=== PATIENT | female | born 1955 | race African-American/Black ===

== ENCOUNTER 2020-04-08 14:43 | Inpatient (IN) | payer OTHER ==
[~2020-04-08] VITALS: Ht 172.7 cm; Wt 89.4 kg
[2020-04-08 14:45] VITALS: BP 99/61
[2020-04-08 15:22] LABS: BASOPHILS 0.4 % (0.0-2.0); EOSINOPHILS 0.1 % (0.0-3.0); HEMATOCRIT 35.7 % (37.0-47.0); HEMOGLOBIN 11.7 gm/dL (12.0-15.0); LYMPHOCYTES 5.1 % (24.0-44.0); MCHC 32.9 g/dL (28.0-37.0); MCV 85.2 fL (80.0-100.0); MONOCYTES 4.9 % (1.0-8.0); PLATELET COUNT 259 thou/uL (150-400); POLYS 89.5 % (36.0-66.0); RBC 4.19 mil/uL (4.20-5.00); RDW 15.1 % (10.5-14.5); WBC 12.3 thou/uL (4.0-11.0)
[2020-04-08 15:27] LABS: CALCIUM 9.1 mg/dL (8.5-10.1); CREATININE 0.7 mg/dL (0.6-1.0); POTASSIUM 3.6 mmol/L (3.5-5.1)
--- NOTE | 2020-04-08 15:36 | NUR ---
CALLED DR DENIS FOR UPDATED MED LIST
[2020-04-08 15:42] LABS: DIRECT BILIRUBIN 0.1 mg/dL (<0.1-0.2); TOTAL BILIRUBIN 0.4 mg/dL (0.2-1.0); TOTAL PROTEIN 7.2 g/dL (6.4-8.2)
[2020-04-08 15:44] LABS: APTT 25.4 Seconds (24.5-32.8); INR 1.1; PROTIME 10.9 Seconds (9.3-11.4)
[2020-04-08] MEDS ORDERED: MAGNESIUM OXID400 M1 PO (19:54)
[2020-04-08] MEDS ORDERED: KLOR-CON M2020 MEQ PO (19:54)
[2020-04-08 20:05] LABS: URINE BILIRUBIN NEGATIVE (Negative); URINE BLOOD 1+ (Negative); URINE CLARITY CLEAR; URINE COLOR YELLOW; URINE GLUCOSE-RANDOM* NEGATIVE (Negative); URINE KETONES TRACE (Negative); URINE LEUKOCYTES-REFLEX TRACE (Negative); URINE NITRITE-REFLEX NEGATIVE (Negative); URINE PROTEIN (DIPSTICK) NEGATIVE (Negative); URINE UROBILINOGEN 0.2 E.U./dl (0.2-1.0)
[2020-04-08 20:11] LABS: CASTS None Seen /LPF (None Seen); MUCUS None Seen strn/LPF (None Seen); SQUAMOUS None Seen /LPF (0-3); URINE RBC 0-2 Rare /HPF (0-2); URINE WBC-REFLEX 0-5 Rare /HPF (0-5)
[2020-04-08 20:12] LABS: BACTERIA-REFLEX >30 Many /HPF (None Seen); CRYSTALS None Seen /LPF (None Seen)
[2020-04-09] VITALS (7 sets, daily range): BP systolic 115–150; BP diastolic 42–87
[2020-04-09 05:32] LABS: HEMATOCRIT 38.7 % (37.0-47.0); HEMOGLOBIN 12.4 gm/dL (12.0-15.0); MCV 87.4 fL (80.0-100.0); RBC 4.43 mil/uL (4.20-5.00); RDW 15.7 % (10.5-14.5); WBC 12.9 thou/uL (4.0-11.0)
[2020-04-09 05:59] LABS: CALCIUM 8.7 mg/dL (8.5-10.1); CREATININE 0.7 mg/dL (0.6-1.0); POTASSIUM 3.6 mmol/L (3.5-5.1)
--- NOTE | 2020-04-09 06:02 | NUR ---
PT ARRIVED TO ROOM 353 VIA BED WITH LAND SURVEYING MANAGER. ADMISSION ASSESSMENTS COMPLETED. PT ALERT, ORIENTED TO NAME AND PLACE "[facility]." DOES NOT KNOW DATE OR HAVE FULL UNDERSTANDING ON WHY SHE WAS BROUGHT TO THE HOSPITAL. "I DON'T WANT TO HAVE COVID AGAIN." NOTED TEMP GREATER THAN 103 DEGREES PRIOR TO ARRIVAL PER LAND SURVEYING MANAGER. UPON ARRIVAL TO 353, ORAL TEMP 102.2 DID LOWER THE AMBIENT TEMP TO THE ROOM TO 65 DEGREES AND KEEP BLANKETS OFF PT. THIS AM ORAL TEMP 100.9. CONTINUE TO MONITOR.
--- NOTE | 2020-04-09 11:33 | HC ---
[facility] [place] [address] CONSULTATION Name: OUSMANE FORD Room #: 353- ADM IN M.R.#: [id number] Admission: 04/08/20 Attend Phys: Taras Veras MD Discharge: Date of : 57 Report #: [id number] THIS REPORT FOR: cc: Akira Cantrell James D. DO Barry, Joseph W. MD ~ CC: Akira Veras DATE OF SERVICE: 04/09/2020 INFECTIOUS DISEASE CONSULTATION ATTENDING PHYSICIAN: Dr. Veras. REASON FOR EVALUATION: Febrile illness with cephalopathy in the setting of multiple sclerosis. HISTORY OF PRESENT ILLNESS: Chart reviewed, the patient examined. This is a 65-year-old with history of MS, spondylosis with myopathy, who presented from a facility with complaints of fevers, which have been high grade and altered mental status. There was some discussion, was confirmed to have COVID positive testing back in 12/2019. Repeat testing, thus far has been unremarkable. Additional evaluation is difficult to get a history from her. She is generally uncomfortable and quite lethargic. Screening evaluation noted initial lactic acid of 2.3. Chest x-ray showed no acute process. Urinalysis was unremarkable. Blood cultures thus far negative. She was empirically given combination therapy with ceftriaxone, Zosyn and vancomycin. She was continued on cefepime. Apparently had reported a headache. There is a lumbar puncture that was attempted, which was unsuccessful. At this point, she denies significant headache. She is not aware of anybody that has been ill around her. No particular exposure history. ALLERGIES: None known. MEDICATIONS: Include vancomycin, cefepime, methylprednisolone, ___, antiemetics. She is on enoxaparin as well. PAST MEDICAL HISTORY: Includes multiple sclerosis, history of dysphagia, hypertension, spondylosis with myopathy. 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 SOCIAL HISTORY: Nonsmoker, no ethanol, no illicit drug use. I believe she is disabled. FAMILY HISTORY: Noncontributory. [facility] [address] [place] [address] CONSULTATION Name: OUSMANE FORD Room #: 353-[facility] IN M.R.#: [id number] Admission: 04/08/20 Attend Phys: Taras Veras MD Discharge: Date of : 57 Report #: [id number] REVIEW OF SYSTEMS: Limited given the patient's inability. PHYSICAL EXAMINATION: GENERAL: She appears chronically ill. She is lethargic, in moderate distress. VITAL SIGNS: T-max 102.2, more recently 100.4, pulse 103, respirations 14, blood pressure 115/67. SKIN: Warm, dry, no rashes. HEENT: Normocephalic. Extraocular muscles intact. NECK: Appears to be supple. HEART: Regular, has a soft systolic murmur. LUNGS: Diminished breath sounds. Few scattered crackles at the bases. ABDOMEN: Distended, soft, there are no peritoneal signs. GENITOURINARY AND RECTAL: Deferred. LABORATORY DATA: Initial CBC: White count 12.3, H and H 11.7 and 35.7, platelets of 259. Lactic acid of 2.3, repeat was 1.7. CT of the head showed moderately prominent periventricular low attenuation along the frontal lobes that is to be microvascular ischemia, no findings of hemorrhage. Electrolytes: Sodium 139, potassium 3.6, chloride 100, bicarbonate 28, anion gap of 11, BUN and creatinine 8 and 0.7, glucose of 130. Albumin of 3.0, total protein 7.2. LFTs unremarkable. PT of 10.9, INR 1.1. Chest x-ray as noted above was unremarkable. Urinalysis as well was unremarkable. COVID testing was negative. Blood cultures are sterile thus far. ASSESSMENT: Febrile illness of uncertain etiology with associated encephalopathy, it is difficult to ascertain her baseline, does have a NETWORKS SOFTWARE CONSULTANT shunt. We will continue broad-spectrum antimicrobial therapy. At this point, would favor repeated attempt at doing a lumbar puncture perhaps under the guidance of Interventional Radiology to exclude the possibility. I do not see any focus of pyogenic infection. We will image her abdomen and pelvis to exclude an occult process there. Again, she remains ill, but not overtly toxic at this point. <ELECTRONICALLY SIGNED> By: Slyvester Burton MD 04/09/20 1133 [id number] Sylvester Burton MD /nt
[2020-04-09] MEDS ORDERED: ACETAMINOPHEN325 MG PO (14:39)
[2020-04-09] MEDS ORDERED: NORVASC 2.5 MG2.5 M1 PO (14:40)
[2020-04-09] MEDS ORDERED: VITAMIN C500 M2 PO (14:41)
[2020-04-09] MEDS ORDERED: VITAMIN D3250 MCG PO (14:42)
[2020-04-09] MEDS ORDERED: BACLOFEN 10MG T10 MG PO (14:42)
[2020-04-09] MEDS ORDERED: COLACE100 MG PO (14:43)
[2020-04-09] MEDS ORDERED: FAMOTIDINE 20 M20 MG PO (14:44)
[2020-04-09] MEDS ORDERED: DULCOLAX10 MG RECTAL (14:44)
[2020-04-09] MEDS ORDERED: NEURONTIN 300M300 M2 PO (14:45)
[2020-04-09] MEDS ORDERED: GLYCOLAX119 GM PO (14:46)
[2020-04-09] MEDS ORDERED: HYDROCHLOROTHIA25 M2 PO (14:47)
[2020-04-09] MEDS ORDERED: JUVEN PACKET1 EAC1 PO (14:48)
[2020-04-09] MEDS ORDERED: MIRTAZAPINE7.5 MG PO (14:49)
[2020-04-09] MEDS ORDERED: SUPER THERAVIT1 EACH PO (14:50)
[2020-04-09] MEDS ORDERED: CASTIVA COOLIN113 GM TOP (14:52)
[2020-04-09] MEDS ORDERED: OXYBUTYNIN 5 MG5 M2 PO (14:53)
[2020-04-09] MEDS ORDERED: PROSOURCE NO CA30 ML PO (14:54)
[2020-04-09] MEDS ORDERED: FLOMAX0.4 MG PO (14:55)
[2020-04-09] MEDS ORDERED: TECFIDERA240 MG PO (14:55)
[2020-04-09] MEDS ORDERED: ULTRAM 50MG TAB50 MG PO (14:56)
[2020-04-09] MEDS ORDERED: TUMS ULTRA400 MG PO (14:57)
[2020-04-09] MEDS ORDERED: ZINC SULFATE220 MG PO (14:58)
[2020-04-10 05:27] VITALS: BP 152/92
[2020-04-10 05:51] LABS: HEMATOCRIT 35.2 % (37.0-47.0); HEMOGLOBIN 11.4 gm/dL (12.0-15.0); MCH 28.3 pg (26.0-34.0); MCHC 32.5 g/dL (28.0-37.0); MCV 87.1 fL (80.0-100.0); RBC 4.04 mil/uL (4.20-5.00); RDW 15.1 % (10.5-14.5); WBC 10.5 thou/uL (4.0-11.0)
[2020-04-10 06:02] LABS: CALCIUM 8.8 mg/dL (8.5-10.1); CREATININE 0.6 mg/dL (0.6-1.0)
[2020-04-10 08:27] VITALS: BP 131/69
[2020-04-10 10:53] VITALS: BP 118/63
[2020-04-10 15:41] VITALS: BP 129/79
--- NOTE | 2020-04-10 18:43 | NUR ---
RN HAS ASSUMED PT'S CARE AT 0700AM, PT IS A&OX3 , PT 'S VS ARE STABLE, PT IS CONTINUING IV FLUID AND IV ABX , PT 'S WOUND CARE HAS DONE PER WOUND DR ORDER, PT DENIES PAIN AND SOB , PT IS CONTINUING ISOLATION TO R/O COVID.
[2020-04-10 20:43] VITALS: BP 143/80
--- NOTE | 2020-04-11 04:06 | NUR ---
ASSUMED CARE FROM DAY SHIFT PT ALERT ORIENTED X4 DENIES PAIN ,PO MEDICATION TAKEN WITHOUT DIFF, HS SNACK EATEN . PT REPOSITIONED TO SIDE. METAL BUILDING ASSEMBLER SHOWS NSR.RESTING WELL THROUGHOUT HOURLY ROUNDS WILL CONITINUE WITH CURENT PLAN OF CARE.
[2020-04-11 04:33] VITALS: BP 129/75
[2020-04-11 06:04] LABS: HEMATOCRIT 34.6 % (37.0-47.0); HEMOGLOBIN 11.1 gm/dL (12.0-15.0); MCH 27.9 pg (26.0-34.0); MCV 87.2 fL (80.0-100.0); RBC 3.97 mil/uL (4.20-5.00); RDW 15.5 % (10.5-14.5); WBC 11.4 thou/uL (4.0-11.0)
[2020-04-11 06:18] LABS: CALCIUM 8.4 mg/dL (8.5-10.1); CREATININE 0.8 mg/dL (0.6-1.0); MAGNESIUM 2.1 mg/dL (1.8-2.4)
[2020-04-11 08:40] VITALS: BP 142/77
[2020-04-11 12:30] VITALS: BP 144/86
[2020-04-11 16:00] VITALS: BP 135/72
--- NOTE | 2020-04-11 16:16 | NUR ---
INITIAL ASSESSMENT: Received consult. GENOVEVA reviewed chart and spoke with nursing and attending physician. Pt was admitted from [facility] due to fever/sepsis. Pt placed in Enhanced Isolation to r/o COVID-19. Pt is on IV steroids and IV abx. Enhanced Isolation precautions have been discontinued. Pt with hx of MS and is wheelchair bound. GENOVEVA spoke with pt. Introduced role of SW. Pt is alert/orientated x 4. 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 Pt's mother also resides at [place]. Pt confirms her plan is to return to [facility] when medically stable. Discharge anticipated for tomorrow. SW faxed clinical info/COVID test results to [facility] for review. Notified post-acute liaison of info and anticipated discharge. GENOVEVA is following to assist as needed with discharge planning.
--- NOTE | 2020-04-11 17:29 | NUR ---
PT'S COVID TEST WAS NEGATIVE FROM 04/08/20 TEST, PT DOES NOT HAVE FEVER AND SOB , ID DR HAS ASSESSED PT'S SITUATION , DC ISOLATION PER IID
--- NOTE | 2020-04-11 17:33 | NUR ---
RN HAS ASSUMED PT'S CARE AT 0700AM , PT IS A&OX3, BUT PT IS FORGETFUL, PT IS CONTINUING IV ABX AND WOUND CARE , PT NEED HE RN KEY ASSUMED PT'S CARE AT 0700AM , PT IS A&OX3, BUT PT IS FORGETFUL, PT IS CONTINUING IV ABX AND WOUND CARE , PT 'S VS ARE STABLE, PT NEEDS HELP ADL, AND CHANGE POSITION, PT DOES NOT HAVE FEVER,SOB AND PAIN AT TIME.
[2020-04-11 19:42] VITALS: BP 141/87
[2020-04-12 03:11] VITALS: BP 147/90
[2020-04-12 05:01] LABS: HEMATOCRIT 36.2 % (37.0-47.0); HEMOGLOBIN 11.7 gm/dL (12.0-15.0); MCH 27.9 pg (26.0-34.0); MCHC 32.4 g/dL (28.0-37.0); MCV 86.1 fL (80.0-100.0); RBC 4.21 mil/uL (4.20-5.00); RDW 15.3 % (10.5-14.5); WBC 7.2 thou/uL (4.0-11.0)
[2020-04-12 05:22] LABS: CALCIUM 8.8 mg/dL (8.5-10.1); CREATININE 0.6 mg/dL (0.6-1.0); POTASSIUM 3.9 mmol/L (3.5-5.1)
--- NOTE | 2020-04-12 06:39 | NUR ---
ASSUMED CARE AT 1900. PT DENIED PAIN, NAUSEA, OR SOB. SR ON TELE OVERNIGHT. GAVE FULL BED BATH WITH LINEN CHANGE THIS AM. SKIN WAS VERY FLAKY, AND WHILE GIVING BATH, A CALLOUS CAME OFF THE LEFT LATERAL FOOT EXPOSING A SMALL PINK SORE; WOUND PHOTO TAKEN AND DOCUMENTED. PLAN FOR D/C BACK TO FACILITY TODAY, NO OTHER CONCERNS, WILL CONTINUE TO MONITOR.
[2020-04-12 07:00] VITALS: BP 152/102
[2020-04-12 08:21] VITALS: BP 152/102
[2020-04-12] MEDS ORDERED: MINOCYCLINE 5050 M1 PO (08:34)
--- NOTE | 2020-04-12 09:31 | NUR ---
DISCHARGE NOTE: SW reviewed chart and spoke with nursing and attending physician. Pt is medically stable for discharge back to [facility] today. SW faxed discharge orders/summary to [facility] post-acute liaison. Confirmed info was received. Stretcher van transportation scheduled for [id number] through [employer] [facility] [employer]. Facility arranged transportation. SW placed call to pt's room. No answer. Nursing to notify pt. Chart copy requested. Nursing provided with number for report. No additoinal SW needs identified at this time, but is available to assist should needs arise.
--- NOTE | 2020-04-12 10:25 | HC ---
[facility] [place] [address] CONSULTATION Name: OUSMANE FORD Room #: 353-P ADM IN M.R.#: [id number] Admission: 04/08/20 Attend Phys: Taras Veras MD Discharge: Date of : 57 Report #: [id number] THIS REPORT FOR: cc: Akira Cantrell,Efe Aviles MD ~ CC: Akira Veras DATE OF SERVICE: 04/10/2020 WOUND CARE CONSULTATION NOTE REASON FOR CONSULTATION: Sacral pressure sore in a patient with paraplegia from multiple sclerosis, admitted for sepsis. HISTORY OF PRESENT ILLNESS: The patient is a 65-year-old woman with a history of multiple sclerosis and ventriculoperitoneal shunt, who was admitted today with temperature of 103 with rule out COVID. She may have had a positive COVID test 2 days ago. I am consulted due to findings of a sacral pressure sore, which may be chronic. She is wheelchair bound. PAST MEDICAL HISTORY: Include multiple sclerosis, recent positive test for COVID-19, admitted for fever. ALLERGIES: None. LABORATORY DATA: White blood count 12.3. Albumin 3.0. MEDICATIONS: See chart. PHYSICAL EXAMINATION: GENERAL: Shows an obese woman, alert, pleasant, conversant. She is immobile from paraplegia from multiple sclerosis. HEENT: Mucous membranes are moist. NECK: Supple. ABDOMEN: Soft. EXTREMITIES: Examination of the patient's back shows a chronic appearing 3 x 2 x 1.5 cm deep sacral stage 3 pressure ulcer with no exposed bone. This is chronic healthy pink appearing granulation tissue. There is more shallow stage 3 ulcer lateral to this on the right measuring 2.5 x 2 cm. These do not appear infected or not a source of sepsis. IMPRESSION: 1. Multiple sclerosis. 2. Immobility with affective paraplegia from multiple sclerosis. [facility] [address] [place] [address] CONSULTATION Name: OUSMANE FORD Room #: 353-P ADM IN [facility].#: [id number] Admission: 04/08/20 Attend Phys: Taras Veras MD Discharge: Date of : 57 Report #: [id number] 3. Sepsis, rule out COVID. 4. Ventriculoperitoneal shunt. Neck pain, rule out meningitis. 5. Toxic encephalopathy. 6. Sacral stage 3 pressure ulcer. PLAN: Sacral pressure sore appears chronic. We will keep this clean with quarter strength [employer] packing daily. Wound care team will follow. <ELECTRONICALLY SIGNED> By: Efe Mccarty MD 04/12/20 1025 [id number] Efe Mccarty MD /nt
--- NOTE | 2020-04-12 16:53 | NUR ---
RN HAS RECEVED ORDER TO DC PT, PT'S VA ARE STABLE , RN HAS CALLED REPORT TO SNF , PT'S WOUND CARE HAS DONE, PT WAS DC TO SNF AT 1130AM.
== END 2020-04-12 11:55 | DRG 871 ==
LOC: ER 14:43 → 3W 19:58 → EROBS 19:58 → 3W 04-09 01:37
PROVIDERS: Emergency Medicine; Nurse Practitioner Family; ADMIT Hospitalist; ATTEND Hospitalist
PROC: 00JV3ZZ Inspection of Spinal Cord, Percutaneous Approach (ICD-10-PCS; principal; 2020-04-08)
DX: A41.89 Other specified sepsis (principal); L89.153 Pressure ulcer of sacral region, stage 3; U07.1 COVID-19; G92 Toxic encephalopathy; J12.89 Other viral pneumonia; G82.20 Paraplegia, unspecified; G35 Multiple sclerosis; I10 Essential (primary) hypertension; Z99.3 Dependence on wheelchair; Z79.899 Other long term (current) drug therapy
CPT/HCPCS: 10879